=== PATIENT | male | born 1995 | race Native Hawaiian/Other Pacific Islander ===

== ENCOUNTER → 2021-07-25 15:17 | Outpatient (CLI) | payer OTHER, SELFPAY ==
--- NOTE | 2021-07-25 15:22 | DI.CT.S_ITS ---
PROCEDURE: CT ABDOMEN LIVER PROTOCOL INDICATIONS: HEPATOMEGALY TECHNIQUE: 4 phase scanning was performed. Non-contrast 5 mm axial sections acquired from the diaphragm to the iliac crests. Following the administration of intravenous contrast, 5 mm thick arterial-phase, portal venous-phase, and 5-minute delayed phase images were acquired through the liver. 5 mm thick coronal and sagittal reformats were performed. For radiation dose reduction, the following was used: automated exposure control, adjustment of mA and/or kV according to patient size. COMPARISON: None. FINDINGS: Image quality: Excellent. Lung bases: No pleural effusion. Liver: Hepatic steatosis is present. Right lobe of the liver measures 19.4 cm in length measured in the coronal plane. There is peripheral and geographic hyperdensity within the medial and lateral segments of the left lobe of the liver adjacent to the fissure for the ligamentum teres, most conspicuous on portal venous phase images (for example series 5, images 22-25 and series 6, images 27 and 28) but also visible on noncontrast and delayed phase images. Other solid organs: No radiopaque gallstones. Biliary system is non dilated. Pancreas is unremarkable in morphology. Spleen is unremarkable in size and enhancement. No adrenal nodules. No hydronephrosis or nephrolithiasis. Nodes and vessels: No retroperitoneal or mesenteric adenopathy by size criteria. No abdominal aortic aneurysm. Left IVC variant anatomy. Bowel and peritoneum: Unenhanced bowel loops are normal in caliber. No free fluid or air. Bones: No suspicious bony lesions. No vertebral body compression fractures. Miscellaneous: No ventral hernias. IMPRESSION: 1. Hepatic steatosis. 2. The right lobe of the liver is prominent in length measuring 19.4 cm. This is nonspecific and is indeterminate for hepatomegaly versus anatomical variation such as Michelle's lobe variant anatomy. With regard to potential hepatomegaly, this exam may be best served as a baseline for future comparisons. 3. Nonspecific hyperdensity present in the medial and lateral segments of the left lobe of the liver. The morphology and location of this finding raises the possibility of focal fatty sparing, however further follow-up is recommended to exclude the presence of an underlying lesion. Could consider liver MRI with and without contrast for further evaluation or repeat multi phase CT of the liver to assess for stability. If performed, consider an interval of 3-6 months or other interval at clinical discretion. Dictated by: Karl Mcghee M.D. on 07/25/2021 at 20:51 Approved by: Karl Mcghee M.D. on 07/25/2021 at 21:12
== END ==
PROVIDERS: Referring Provider Internal Medicine; Visit Provider Internal Medicine
DX: K76.0 Fatty (change of) liver, not elsewhere classified (principal); R16.0 Hepatomegaly, not elsewhere classified
CPT/HCPCS: 74170; Q9967

== ENCOUNTER → 2021-08-23 14:17 | Outpatient (CLI) | payer OTHER, SELFPAY ==
--- NOTE | 2021-08-23 | DI.MRI.S_ITS ---
PROCEDURE: MR ABDOMEN WO/W CON INDICATIONS: Liver disease, unspecified TECHNIQUE: Coronal HASTE, axial 2D FLASH in- and [id number]; axial breath-hold T2 FSE. Dynamic axial VIBE during the administration of contrast; post-contrast coronal VIBE or 2D FLASH with fat saturation from the hepatic dome to the iliac crests. Optional diffusion weighted imaging and ADC may be performed. COMPARISON: [facility], CT, CT ABDOMEN LIVER PROTOCOL, 07/25/2021, 15:31. FINDINGS: Image quality: Adequate. There is motion on multiple sequences.. Lung bases: No basal pleural effusions. Heart size is normal. Solid organs: The liver is enlarged measuring 19.7 cm in length. The margin is smooth. There are areas of geographic signal drop on T1 out of phase imaging, particularly in segments V, , and VIII. Other segments and areas in the liver demonstrate geographic fatty sparing. There is no abnormal enhancement postcontrast. The gallbladder, biliary tree, pancreas, spleen, adrenal glands, and kidneys are normal. Nodes and vessels: No retroperitoneal or visible mesenteric adenopathy. 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 Abdominal aorta caliber is normal. Bowel and peritoneum: Unenhanced bowel loops are normal in caliber. No free fluid. Bones and soft tissues: No ventral hernias. Bone marrow is normal in overall signal. IMPRESSION: 1. Hepatomegaly and geographic areas of moderate hepatic steatosis and fatty sparing. Dictated by: Carmen Rascon M.D. on 08/23/2021 at 17:37 Approved by: Carmen Rascon M.D. on 08/23/2021 at 17:58
== END ==
PROVIDERS: PCP Family Medicine; Referring Provider Family Medicine; Visit Provider Family Medicine
DX: K76.0 Fatty (change of) liver, not elsewhere classified (principal)
CPT/HCPCS: 74183; A9579